=== PATIENT | female | born 1940 | race Asian ===

== ENCOUNTER 2023-03-29 16:40 | Outpatient (CLI) | payer MEDICARE, SELFPAY | END 2023-03-29 16:41 | disposition home or self-care (01) | PROVIDERS: Visit Provider Physician Assistant | DX: R30.0 Dysuria (principal); N39.0 Urinary tract infection, site not specified | CPT/HCPCS: 87086; 87186 ==

== ENCOUNTER 2023-04-13 17:58 | Outpatient (CLI) | payer MEDICARE, SELFPAY | END 2023-04-13 17:59 | disposition home or self-care (01) | LOC: NFLDREF 04-21 11:01 | PROVIDERS: Visit Provider Nurse Practitioner Family | DX: R30.0 Dysuria (principal); N39.0 Urinary tract infection, site not specified; N30.01 Acute cystitis with hematuria | CPT/HCPCS: 87086; 87186 ==

== ENCOUNTER 2024-09-20 12:30 | Outpatient (CLI) | payer MEDICARE, SELFPAY | END 2024-09-20 12:31 | disposition home or self-care (01) | LOC: NFLDREF 09-22 02:23 | PROVIDERS: Visit Provider Nurse Practitioner Family | DX: N30.01 Acute cystitis with hematuria (principal); B96.1 Klebsiella pneumoniae [K. pneumoniae] as the cause of diseases classified elsewhere; B96.4 Proteus (mirabilis) (morganii) as the cause of diseases classified elsewhere | CPT/HCPCS: 87086 ==